=== PATIENT | female | born 1975 | race Caucasian/White ===

== ENCOUNTER 2016-12-27 09:13 | Emergency (ER) | payer OTHER, MEDICAID ==
[~2016-12-27] VITALS: Ht 162.6 cm; Wt 73.9 kg
[~2016-12-27 09:13] MED LIST: CIPR0.3S RIGHT EAR
[2016-12-27 09:18] VITALS: BP 125/81; PULSE 79; RESP 18; TEMP 97.8; O2SAT 98
--- NOTE | 2016-12-27 09:42 | PD ---
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 Patient has had the symptoms for last 3 days. She denies vaginal discharge or bleeding. No urinary symptoms. States that she has not had sexual intercourse in over 7 years. No abdominal pain. PFSH Past Medical History Medical History: Denies Significant Hx High Cholesterol: Yes Diminished Hearing: No Immunizations Current: No Tetanus Vaccination: Unknown ?: Not : 0 Para: 0 Miscarriage: 0 : 0 Past Surgical History Surgical History: No Previous Surgery Social History Alcohol Use: Yes (RARE) Tobacco Use: No Substance Use: No Allergies-Medications (Allergen,Severity, Reaction): Coded Allergies: No Known Allergies (Verified , 12/27/16) Reported Meds & Prescriptions Reported Meds & Active Scripts Active No Active Prescriptions or Reported Medications Review of Systems Except as stated in HPI: all other systems reviewed are Neg Physical Exam Narrative GENERAL: Well-developed, well-nourished, comfortable, no acute distress. CARDIOVASCULAR: Regular rate and rhythm. RESPIRATORY: No accessory muscle use. GASTROINTESTINAL: Abdomen soft, non-tender, nondistended. 3RD MATE: Exam performed in the presence of a female nurse. External genitalia with mild erythema. No external lesions. No fluctuance or induration. There is uterine/bladder prolapse, however cervix does not protrude outside of the introitus. No vaginal discharge or bleeding. No uterine tenderness. No CMT. PSYCHIATRIC: Appropriate mood and affect; insight and judgment normal. Data Data Last Documented VS Vital Signs Date Time Temp Pulse Resp B/P Pulse Ox O2 Delivery O2 Flow Rate FiO2 12/27/16 09:18 97.8 79 18 125/81 98 Orders Urinalysis - C+S If Indicated (12/27/16 09:28) Ed Urine Pregnancytest Poc (12/27/16 09:28) Gc And Chlamydia Pcr (12/27/16 09:39) Wet Prep Profile (12/27/16 09:39) Urine Culture (12/27/16 09:30) Labs Laboratory Tests Test 12/27/16 12/27/16 09:30 09:40 Urine Collection Type CLEAN CATCH Urine Color YELLOW Urine Turbidity MOD Urine pH 5.5 Urine Specific [facility] 1.022 Urine Protein TRACE mg/dL Urine Glucose (UA) 250 mg/dL Urine Ketones TRACE mg/dL Urine Occult Blood NEG Urine Nitrite NEG Urine Bilirubin NEG Urine Leukocyte Esterase NEG Urine WBC 3-5 /hpf Urine Squamous Epithelial > 8 /hpf Cells Urine Transitional Epithelial 0-5 /hpf Cells Urine Amorphous Sediment MOD Urine Bacteria MOD /hpf Urine Hyaline Casts 0-2 /lpf Microscopic Urinalysis Comment CULTURE INDICATED Urine Collection Time 0930 Clue Cells (Wet Prep) PRESENT Vaginal Trichomonas (Wet Prep) NONE SEEN Vaginal Yeast (Wet Prep) NONE SEEN MDM Medical Decision Making Medical Screen Exam Complete: Yes Emergency Medical Condition: Yes Medical Record Reviewed: Yes Differential Diagnosis Vulvovaginal candidiasis, UTI, cystitis, uterine prolapse, bladder prolapse, uterine cancer, PID unlikely Narrative Course Vital signs are within normal limits. UA shows moderate turbidity, 250 glucose, trace ketones, squamous epithelial cells, moderate bacteria which is likely secondary to BV seen on wet prep. Wet prep is positive for clue cells, negative for yeast, negative for Trichomonas. The patient was made aware of all findings. Her abdominal exam is benign. She will be started on Flagyl. She will also be given a dose of Diflucan as clinically it looks as though she does have vulvovaginal candidiasis. I stressed the importance of 3RD MATE follow-up for her uterine prolapse. I will give her the name of the hide puller manufacturing controller with him to follow-up with. She was informed on when to return to the emergency department. She verbalizes understanding and agreement with plan. Diagnosis Primary Impression: Bacterial vaginosis Referrals: Elyssa Rojas MD 3 days Electronics Production Supervisor Additional Instructions: Follow-up with hide puller Dr. Rojas or a hide puller of your choice this week. Return to the emergency department for worsening symptoms or any other concerns. Scripts Metronidazole 500 Mg [id number] Mg PO BID 7 Days Ref 0 Prov:Bryon Summers MD 12/27/16 Disposition: 01 DISCHARGE HOME Condition: Stable Bryon Summers MD Dec 27, 2016 09:42
[2016-12-27 09:43] LABS: BLOOD, URINE NEG (NEG); GLUCOSE,URINE 250 mg/dL (NEG); KETONE, URINE TRACE mg/dL (NEG); NITRITE,URINE NEG (NEG); PH, URINE 5.5 (5.0-8.5)
[2016-12-27 09:54] LABS: METHOD OF COLLECTION CLEAN CATCH; URINE COLOR YELLOW (YELLW/STRAW)
[2016-12-27 09:56] LABS: BACTERIA, URINE MOD /hpf; COMMENT (UR) CULTURE INDICATED; COMMENT2 (UR) MUCOUS PRESENT; CULTURE IF INDICATED CULTURE INDICATED; HYALINE CAST, URINE 0-2 /lpf (RARE); SQUAMOUS EPITHELIAL CELL URINE > 8 /hpf (0-5); TRANSITIONAL EPI CELLS, URINE 0-5 /hpf
[2016-12-27] MEDS ORDERED: METR500T10 PO (10:05)
[2016-12-27] MEDS ORDERED: metroNIDAZOLE 500 MG TAB PO ONE (10:15)
[2016-12-27] MEDS ORDERED: FLUCONAZOLE 100 MG TAB PO ONE (10:15)
[2016-12-27 16:25] LABS: CHLAMYDIA PCR NOT DETECTED (NOT DETECT); NEISSERIA PCR NOT DETECTED (NOT DETECT)
== END 2016-12-27 10:17 | disposition home or self-care (01) ==
LOC: PHED 09:13
DX: N76.0 Acute vaginitis (principal); B37.3 Candidiasis of vulva and vagina; B96.89 Other specified bacterial agents as the cause of diseases classified elsewhere
CPT/HCPCS: 81001; 84703; 87086; 87210; 87491; 87591; 99283

== ENCOUNTER 2017-01-31 11:12 | Emergency (ER) | payer MEDICARE, MEDICAID ==
[~2017-01-31] VITALS: Ht 162.6 cm; Wt 73.0 kg
[~2017-01-31 11:12] MED LIST changes: -CIPR0.3S RIGHT EAR; +METR500T10 PO
[2017-01-31 11:14] VITALS: BP 119/76; PULSE 95; RESP 15; TEMP 97.8; O2SAT 98
[2017-01-31 11:34] LABS: BLOOD, URINE NEG (NEG); GLUCOSE,URINE 250 mg/dL (NEG); KETONE, URINE 15 mg/dL (NEG); NITRITE,URINE NEG (NEG); PH, URINE 5.5 (5.0-8.5)
[2017-01-31 11:44] LABS: METHOD OF COLLECTION CLEAN CATCH; URINE COLOR YELLOW (YELLW/STRAW)
[2017-01-31 11:46] LABS: BACTERIA, URINE MOD /hpf; COMMENT (UR) CULTURE INDICATED; CULTURE IF INDICATED CULTURE INDICATED; RBC, URINE 0-3 /hpf (0-3); SQUAMOUS EPITHELIAL CELL URINE > 8 /hpf (0-5)
[2017-01-31 12:27] VITALS: BP 117/65; PULSE 75; RESP 16; O2SAT 99
--- NOTE | 2017-01-31 12:52 | PD ---
HPI Chief Complaint: Complaint Time Seen by Provider: 11:29 Travel History International Travel<30 days: No Contact w/Intl Traveler<30days: No Traveled to known affect area: No History of Present Illness HPI 41-year-old female describes dysuria and vaginal pruritus a few days. No abnormal vd/vb. 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 No fever/chills. A rash has been seen in region of pubic hair following shaving of the pubic hair.Pt reports sexual inactivity for 7 years. PFSH Past Medical History High Cholesterol: Yes Diminished Hearing: No Immunizations Current: No ?: Not : 0 Para: 0 Miscarriage: 0 : 0 Social History Alcohol Use: Yes (RARE) Tobacco Use: No Substance Use: No Allergies-Medications (Allergen,Severity, Reaction): Coded Allergies: No Known Allergies (Verified , 01/31/17) Reported Meds & Prescriptions Reported Meds & Active Scripts Active Bactrim DS (Sulfamethoxazole-Trimethoprim) 800-160 Mg Tab 1 Tab PO BID Review of Systems General / Constitutional: No: Fever, Chills Genitourinary: Positive: Frequency, Dysuria Physical Exam Narrative GENERAL: 41 yo F wnwd nad SKIN: Warm and dry. PELVIC: Dermatitic rash in region of pubic hair, recently shaved. Vaginal introitus not amenable to speculum exam. Trace white discharge at introitus. HEAD: Atraumatic. Normocephalic. RESPIRATORY: No accessory muscle use. Clear to auscultation. Breath sounds equal bilaterally. GASTROINTESTINAL: Abdomen soft, non-tender, nondistended. Hepatic and splenic margins not palpable. MUSCULOSKELETAL: Extremities without clubbing, cyanosis, or edema. No obvious deformities. NEUROLOGICAL: Awake and alert. No obvious cranial nerve deficits. Motor grossly within normal limits. Five out of 5 muscle strength in the arms and legs. Normal speech. PSYCHIATRIC: Appropriate mood and affect; insight and judgment normal. Data Data Last Documented VS Vital Signs Date Time Temp Pulse Resp B/P Pulse Ox O2 Delivery O2 Flow Rate FiO2 01/31/17 12:27 75 16 117/65 99 Room Air 01/31/17 11:14 97.8 VS reviewed Orders Urinalysis - C+S If Indicated (01/31/17 11:15) Urine Culture (01/31/17 11:30) Wet Prep Profile (01/31/17 11:51) Labs Laboratory Tests Test 01/31/17 01/31/17 11:30 11:55 Urine Collection Type CLEAN CATCH Urine Color YELLOW Urine Turbidity SLIGHT Urine pH 5.5 Urine Specific [facility] 1.027 Urine Protein 30 mg/dL Urine Glucose (UA) 250 mg/dL Urine Ketones 15 mg/dL Urine Occult Blood NEG Urine Nitrite NEG Urine Bilirubin NEG Urine Leukocyte Esterase SMALL Urine RBC 0-3 /hpf Urine WBC 20-24 /hpf Urine Squamous Epithelial > 8 /hpf Cells Urine Bacteria MOD /hpf Urine Hyaline Casts 6-9 /lpf Microscopic Urinalysis Comment CULTURE INDICATED Urine Collection Time 11:30 Clue Cells (Wet Prep) NONE SEEN Vaginal Trichomonas (Wet Prep) NONE SEEN Vaginal Yeast (Wet Prep) NONE SEEN MDM Medical Decision Making Medical Screen Exam Complete: Yes Emergency Medical Condition: Yes Medical Record Reviewed: Yes Differential Diagnosis IUP, UTI, ectopic , ov torsion, appendicitis, TOA, cervicitis, BV, Trichomoniasis, ov cyst, hernia, mittelschmerz, pain from menstruation Narrative Course UA: UTI present Wet prep: negative x 3 The patient is resting comfortably and feels better, is alert and in no distress. The patients results and examination findings were discussed. The repeat examination is unremarkable and benign. The history, exam, diagnostic testing, and current condition do not suggest any significant pathology to warrant further testing, continued ED treatment, admission, or surgical evaluation at this point. The vital signs have been stable. The patient does not have uncontrollable pain, intractable vomiting, or other significant symptoms. The patient's condition is stable and appropriate for discharge. The patient will pursue further outpatient evaluation with a primary care physician or other designated or consulting physician as indicated in the discharge instructions. The patient expressed understanding and was agreeable with this plan. Diagnosis Primary Impression: Cystitis Referrals: Shadia Snow MD 2 days Additional Instructions: You have a choice when it comes to health care, and we are glad that you chose [facility]. Hopefully, we have met your expectations on today's visit. You are welcome to return to [facility] at any time, as we are committed to meeting the health care needs of our community. Med/Other Pt SpecificInfo: Prescription(s) given Scripts Sulfamethoxazole-Trimethoprim (Bactrim DS)800-160 Mg Tab1 Tab PO BID #6 TAB Ref 1 Prov:Mervin Monreal MD 01/31/17 Disposition: 01 DISCHARGE HOME Condition: Stable Mervin Monreal MD Jan 31, 2017 12:52
[2017-01-31] MEDS ORDERED: BACT800T5 PO (13:01)
== END 2017-01-31 13:18 | disposition home or self-care (01) ==
LOC: PHED 11:12
DX: N30.90 Cystitis, unspecified without hematuria (principal); E78.00 Pure hypercholesterolemia, unspecified
CPT/HCPCS: 81001; 87086; 87210; 99283

== ENCOUNTER 2017-02-25 10:14 | Emergency (ER) | payer MEDICAID, OTHER ==
[~2017-02-25 10:14] MED LIST changes: +BACT800T5 PO; -METR500T10 PO
[2017-02-25 10:18] VITALS: BP 129/86; PULSE 88; RESP 22; TEMP 98.2; O2SAT 97
--- NOTE | 2017-02-25 10:30 | PD ---
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 She's never had this happen to her before. She had sex 7 years ago with a boyfriend who she thinks had herpes because he told her that she should get on Valtrex. She denies any vaginal discharge, abdominal pain, fevers or chills but has felt somewhat lethargic and lightheaded. PFSH Past Medical History High Cholesterol: Yes Diminished Hearing: No Immunizations Current: No : 0 Para: 0 Miscarriage: 0 : 0 Social History Alcohol Use: Yes (RARE) Tobacco Use: No Substance Use: No Allergies-Medications (Allergen,Severity, Reaction): Coded Allergies: No Known Allergies (Verified , 02/25/17) Reported Meds & Prescriptions Reported Meds & Active Scripts Active Bactrim DS (Sulfamethoxazole-Trimethoprim) 800-160 Mg Tab 1 Tab PO BID Review of Systems Except as stated in HPI: all other systems reviewed are Neg Physical Exam Narrative GENERAL:Well appearing, no acute distress SKIN: Focused skin assessment warm and dry. HEAD: Atraumatic. Normocephalic. EYES: Pupils equal and round. No injection or drainage. ENT: Moist mucous membranes NECK: Trachea midline. CARDIOVASCULAR: Regular rate and rhythm. No murmur appreciated. RESPIRATORY: Clear to auscultation. Breath sounds equal bilaterally. GASTROINTESTINAL: Abdomen soft, non-tender, nondistended. URGENT CARE PHYSICIAN ASSISTANT: Bladder prolapse, white cheesy discharge in the vault, no cervical motion tenderness or adnexal tenderness. No vesicular lesions. Erythematous thickened skin along the vulva MUSCULOSKELETAL: No obvious deformities. NEUROLOGICAL: Awake and alert. No obvious cranial nerve deficits. Moving all extremities. PSYCHIATRIC: Appropriate mood and affect; insight and judgment normal. Data Data Last Documented VS Vital Signs Date Time Temp Pulse Resp B/P Pulse Ox O2 Delivery O2 Flow Rate FiO2 02/25/17 10:18 98.2 88 22 129/86 97 Orders Wet Prep Profile (02/25/17 10:28) Gc And Chlamydia Pcr (02/25/17 10:28) MDM Medical Decision Making Medical Screen Exam Complete: Yes Emergency Medical Condition: Yes Differential Diagnosis Yeast infection, herpes, gonorrhea, chlamydia, vaginosis Narrative Course This is a 41-year-old female who presents to the emergency department with inflammation of her vulva and cheesy white discharge in the vault consistent with a yeast infection. She completed Bactrim one week ago for a suspected urinary tract infection. I don't appreciate any vesicular lesions to suggest herpes. She's not been sexually active in 7 years. I think patient is appropriate for outpatient management. Blood sugar was checked which was normal. She doesn't have a primary care doctor or pump operator. I expressed to her the importance of obtaining both and she was given information regarding the [facility] and [facility]. Diagnosis Primary Impression: Yeast infection Referrals: [facility] Patient Instructions: General Instructions Additional Instructions: If you develop fever, chills, severe abdominal pain, persistent vomiting or inability to eat return to the emergency department. Your pelvic exam today did not include a Pap smear. It is important to followup with a pump operator on a yearly basis to be tested for cervical cancer as we do not do that from the emergency department. Follow up with [facility] [place] [facility] at: Follow up with: [facility] [place] [facility] [address] [place] [address] Office Hours Thursday - 9:00 am - 5:30 pm Thursday 8:00 am - 12:00 pm Teen Tuesdays 4:00 - 6:30 pm Med/Other Pt SpecificInfo: No Change to Meds Disposition: 01 DISCHARGE HOME Condition: Stable Gia Reed MD Feb 25, 2017 10:30
[2017-02-25] MEDS ORDERED: FLUCONAZOLE 100 MG TAB PO ONE (10:45)
[2017-02-25] MEDS ORDERED: METF500T PO (10:48)
--- NOTE | 2017-02-25 10:49 | PD ---
Data Data Last Documented VS Vital Signs Date Time Temp Pulse Resp B/P Pulse Ox O2 Delivery O2 Flow Rate FiO2 02/25/17 10:18 98.2 88 22 129/86 97 Orders Blood Glucose (02/25/17 10:40) Fluconazole (Diflucan) (02/25/17 10:45) MDM Supervised Visit with MANINDER: No Narrative Course An error was made in the previous note. Patient's random blood sugar came back at 310. This is consistent with diabetes. This explains the patient seized infection. She'll be started on metformin and she was urged to follow-up with the failure clinic as soon as possible. Diagnosis Primary Impression: Yeast infection Additional Impression: Diabetes Qualified Code: E11.9 - Type 2 diabetes mellitus without complication, without long-term current use of insulin Referrals: [facility] Patient Instructions: General Instructions Additional Instruction: If you develop fever, chills, severe abdominal pain, persistent vomiting or inability to eat return to the emergency department. Your pelvic exam today did not include a Pap smear. It is important to followup with a poultry hanger on a yearly basis to be tested for cervical cancer as we do not do that from the emergency department. [facility] with [facility]: Follow up with: [facility] [address] [place] [address] Office Hours Thursday - 9:00 am - 5:30 pm Thursday 8:00 am - 12:00 pm Teen Tuesdays 4:00 - 6:30 pm Med/Other Pt SpecificInfo: Prescription(s) given Scripts Metformin 500 Mg [id number] Mg PO BIDPC #60 TAB Ref 0 With meals Prov:Gia Reed MD 02/25/17 Disposition: 01 DISCHARGE HOME Condition: Stable Gia Reed MD Feb 25, 2017 10:49
== END 2017-02-25 11:12 | disposition home or self-care (01) ==
LOC: PHED 10:14
DX: B37.9 Candidiasis, unspecified (principal); E78.00 Pure hypercholesterolemia, unspecified; E11.9 Type 2 diabetes mellitus without complications; Z79.4 Long term (current) use of insulin
CPT/HCPCS: 99284

== ENCOUNTER 2017-02-27 10:14 | Emergency (ER) | payer MEDICAID ==
[~2017-02-27] VITALS: Ht 162.6 cm; Wt 73.5 kg
[~2017-02-27 10:14] MED LIST changes: -BACT800T5 PO; +METF500T PO
[2017-02-27 10:21] VITALS: BP 146/89; PULSE 93; RESP 16; TEMP 97.8; O2SAT 98
--- NOTE | 2017-02-27 10:54 | PD ---
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 Pt was seen at [facility] 2 days ago for this and was diagnosed with vaginal candidiasis and given fluconazole 150mg PO. Pt also found to have elevated random glucose of 310 and given prescription for metformin and follow up with [facility]. Denies any fever, chest pain, sob, n/v, dysuria, hematuria, vaginal bleeding or discharge, abdominal pain, focal weakness or numbness. PFSH Past Medical History High Cholesterol: Yes Diabetes: Yes (?) Diminished Hearing: No Immunizations Current: No Tetanus Vaccination: > 5 Years Influenza Vaccination: Yes ?: Not : 0 Para: 0 Miscarriage: 0 : 0 Social History Alcohol Use: No Tobacco Use: No Substance Use: No Allergies-Medications (Allergen,Severity, Reaction): Coded Allergies: No Known Allergies (Verified , 02/27/17) Reported Meds & Prescriptions Reported Meds & Active Scripts Active Metformin (Metformin HCl) 500 Mg Tab 500 Mg PO BIDPC With meals Review of Systems Except as stated in HPI: all other systems reviewed are Neg Physical Exam Narrative GENERAL: 41yo F not in distress. SKIN: Focused skin assessment warm/dry. HEAD: Atraumatic. Normocephalic. CARDIOVASCULAR: Regular rate and rhythm. No murmur appreciated. RESPIRATORY: No accessory muscle use. Clear to auscultation. Breath sounds equal bilaterally. GASTROINTESTINAL: Abdomen soft, non-tender, nondistended. No rebound tenderness or guarding. PELVIC: Erythematous labia majora and multiple erythematous papules on the hair follicles. There were excoriation from scratching. Do not see vesicles that resemble herpes. There is a small amount of white vaginal discharge. No CMT or adnexal tenderness bilaterally. MUSCULOSKELETAL: No obvious deformities. No clubbing. No cyanosis. No edema. NEUROLOGICAL: Awake and alert. No obvious cranial nerve deficits. Motor grossly within normal limits. Normal speech. PSYCHIATRIC: Appropriate mood and affect; insight and judgment normal. Data Data Last Documented VS Vital Signs Date Time Temp Pulse Resp B/P Pulse Ox O2 Delivery O2 Flow Rate FiO2 02/27/17 10:21 97.8 93 16 146/89 98 Orders Gc And Chlamydia Pcr (02/27/17 10:51) Wet Prep Profile (02/27/17 10:51) Ed Urine Pregnancytest Poc (02/27/17 10:51) Blood Glucose (02/27/17 10:51) Labs Laboratory Tests Test 02/27/17 11:20 Clue Cells (Wet Prep) NONE SEEN Vaginal Trichomonas (Wet Prep) NONE SEEN Vaginal Yeast (Wet Prep) NONE SEEN MDM Medical Decision Making Medical Screen Exam Complete: Yes Emergency Medical Condition: Yes Differential Diagnosis Vulvar folliculitis vs. vaginal candidiasis vs. bacterial vaginosis Narrative Course 41yoF here with c/o persistent vaginal itching. Does not look herpetic to me. Pt has not had sexual intercourse for 7 years. Random blood glucose is again elevated today at 334 and pt states she filled the metformin prescription she had 2 days ago but has not started taking it. Encouraged pt to start medication and to follow up with [facility] as well as HYPOID GEAR GENERATOR. Wet prep negative for clue cells, trichomonas or yeast. Vulva does appear inflamed with early folliculitis. Pt admits to shaving. Will cover with keflex and instructed pt to follow up with HYPOID GEAR GENERATOR. Diagnosis Primary Impression: Vaginal irritation Patient Instructions: General Instructions Departure Forms: Tests/Procedures Additional Instructions: Please follow up with gynecology in 3-7 days. Please follow up with [facility] in 3-7 days for work up of diabetes. Med/Other Pt SpecificInfo: Prescription(s) given Scripts Diphenhydramine 25 Mg Cap25 Mg PO Q6H PRN (ITCHING) #20 CAP Ref 0 Prov:Piper Clark DO 02/27/17 Cephalexin (Keflex)500 Mg [id number] Mg PO Q12H 7 Days Ref 0 Prov:Piper Clark DO 02/27/17 Disposition: 01 DISCHARGE HOME Condition: Stable Piper Clark DO Feb 27, 2017 10:54
[2017-02-27] MEDS ORDERED: CEPH-460 PO (12:19)
[2017-02-27] MEDS ORDERED: DIPH25CA PO (12:19)
[2017-02-27 15:46] LABS: CHLAMYDIA PCR NOT DETECTED (NOT DETECT); NEISSERIA PCR NOT DETECTED (NOT DETECT)
== END 2017-02-27 12:30 | disposition home or self-care (01) ==
LOC: PHED 10:14
DX: N89.8 Other specified noninflammatory disorders of vagina (principal); R73.9 Hyperglycemia, unspecified; E78.00 Pure hypercholesterolemia, unspecified
CPT/HCPCS: 84703; 87210; 87491; 87591; 99283

== ENCOUNTER 2017-04-04 11:54 | Emergency (ER) | payer MEDICARE, MEDICAID ==
[~2017-04-04 11:54] MED LIST changes: +CEPH-460 PO; +DIPH25CA PO
[2017-04-04 11:56] VITALS: BP 141/84; PULSE 101; RESP 15; TEMP 98.2; O2SAT 98
[2017-04-04 12:02] VITALS: PULSE 69
--- NOTE | 2017-04-04 12:02 | PD ---
Physical Exam Date Seen by Provider: Apr 04, 2017 Time Seen by Provider: 12:00 Data Data Last Documented VS Vital Signs Date Time Temp Pulse Resp B/P Pulse Ox O2 Delivery O2 Flow Rate FiO2 04/04/17 11:56 98.2 101 15 141/84 98 MDM Supervised Visit with MANINDER: No Narrative Course 41 YO F with complaint of painful bump in the left groin x "a couple of days." Denies injury. +chills. Also complains of swelling in the left foot on waking this AM. Vitals reviewed. Patient seen in triage. Awaiting bed placement. Nell Green Apr 04, 2017 12:02
--- NOTE | 2017-04-04 12:20 | PD ---
HPI Chief Complaint: Lump, Cyst, Hernia Time Seen by Provider: 12:08 Travel History International Travel<30 days: No Contact w/Intl Traveler<30days: No Traveled to known affect area: No History of Present Illness HPI This is a 41-year-old female who presents to the emergency department with a lump in her left groin that's been going on for several days, painful. She's been bathing frequently in the hopes that it would bust open but it hasn't. She denies any vaginal discharge. She does say she's had some polyuria and she' s been thirsty. She does say she's had some intermittent fevers and chills. She says she hasn't had sex in 7 years. I saw this patient earlier this month at [place]. She was there with white vaginal discharge and I treated her for a yeast infection in the setting of hyperglycemia. She has diabetes which is not currently being treated. She is not sure if she started her diabetes medicine and she's having trouble getting into a primary care doctor. PFSH Past Medical History High Cholesterol: Yes Diabetes: Yes (?) Diminished Hearing: No Immunizations Current: No : 0 Para: 0 Miscarriage: 0 : 0 Social History Alcohol Use: No Tobacco Use: No Substance Use: No Allergies-Medications (Allergen,Severity, Reaction): Coded Allergies: No Known Allergies (Verified , 02/27/17) Reported Meds & Prescriptions Reported Meds & Active Scripts Active Diphenhydramine (Diphenhydramine HCl) 25 Mg Cap 25 Mg PO Q6H PRN Metformin (Metformin HCl) 500 Mg Tab 500 Mg PO BIDPC With meals Review of Systems Except as stated in HPI: all other systems reviewed are Neg Physical Exam Narrative GENERAL:Well appearing, no acute distress SKIN: Scattered excoriated lesions over the right abdomen, and bilateral upper and lower extremities HEAD: Atraumatic. Normocephalic. EYES: Pupils equal and round. No injection or drainage. ENT: Moist mucous membranes NECK: Trachea midline. CARDIOVASCULAR: Regular rate and rhythm. No murmur appreciated. RESPIRATORY: Clear to auscultation. Breath sounds equal bilaterally. GASTROINTESTINAL: Abdomen soft, non-tender, nondistended. SPECIAL DAY CLASS TEACHER: Normal-appearing external genitalia with some erythema and dryness of the vulva. Tender single lymph node in the left inguinal region. No obvious vaginal discharge. MUSCULOSKELETAL: No obvious deformities. NEUROLOGICAL: Awake and alert. No obvious cranial nerve deficits. PSYCHIATRIC: Appropriate mood and affect; insight and judgment normal. Data Data Last Documented VS Vital Signs Date Time Temp Pulse Resp B/P Pulse Ox O2 Delivery O2 Flow Rate FiO2 04/04/17 12:02 69 04/04/17 11:56 98.2 15 141/84 98 Orders Blood Glucose (04/04/17 12:20) [facility] Medical Decision Making Medical Screen Exam Complete: Yes Emergency Medical Condition: Yes Differential Diagnosis STD, lymphadenopathy, vaginosis, yeast infection Narrative Course Is a 41-year-old female who presents to the emergency department with a lump in her vagina. She has multiple unrelated complaints including some pain in her legs, scattered lesions on her upper and lower extremities, and polyuria. I suspect most of this is related to poorly controlled diabetes. The patient appears to have some cognitive delay. She gets very emotional when I tried to breastfeeding peer counselor her regarding her diabetes. [place] Her mom and she says her sister and her daughters are stealing from her and aren't helping her. Sounds like she filed an injunction through the courts but it hasn't gone through. My impression is a lot of her presentation is social. I did try to breastfeeding peer counselor her regarding diabetic diet and the importance of initiating metformin. She's not risk for STD given her history. I think she can safely be discharged and follow -up with his [facility] which I gave her the information for once again. Diagnosis Primary Impression: Lymphadenopathy Additional Impression: Diabetes Qualified Code: E11.9 - Type 2 diabetes mellitus without complication, without long-term current use of insulin Patient Instructions: General Instructions Med/Other Pt SpecificInfo: Prescription(s) given Scripts Mupirocin Topical (Bactroban Topical)22 Gm Cream1 Applic TOPICAL BID #1 TUBE Ref 0 Prov:Gia Reed MD 04/04/17 Metformin 500 Mg [id number] Mg PO BIDPC #60 TAB Ref 0 With meals Prov:Gia Reed MD 04/04/17 Disposition: 01 DISCHARGE HOME Condition: Stable Gia Reed MD Apr 04, 2017 12:20
[2017-04-04] MEDS ORDERED: MUPI2%T TOPICAL (13:11)
[2017-04-04] MEDS ORDERED: METF500T PO (13:11)
== END 2017-04-04 13:20 | disposition home or self-care (01) ==
LOC: NEPD 11:54
DX: R59.1 Generalized enlarged lymph nodes (principal); E11.65 Type 2 diabetes mellitus with hyperglycemia; M79.605 Pain in left leg; M79.604 Pain in right leg; R35.8 Other polyuria; E78.00 Pure hypercholesterolemia, unspecified; Z79.899 Other long term (current) drug therapy
CPT/HCPCS: 99284

== ENCOUNTER 2017-07-06 07:12 | Emergency (ER) | payer MEDICAID, MEDICARE, OTHER ==
[~2017-07-06] VITALS: Ht 165.1 cm; Wt 67.7 kg
[~2017-07-06 07:12] MED LIST changes: -CEPH-460 PO; +MUPI2%T TOPICAL
[2017-07-06 07:19] VITALS: BP 126/71; PULSE 82; RESP 16; TEMP 98.1; O2SAT 97
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
[2017-07-06 08:16] LABS: BLOOD, URINE NEG (NEG); GLUCOSE,URINE 100 mg/dL (NEG); KETONE, URINE 15 mg/dL (NEG); NITRITE,URINE NEG (NEG)
[2017-07-06 08:24] LABS: URINE COLOR YELLOW (YELLW/STRAW)
[2017-07-06 08:26] LABS: BACTERIA, URINE OCC /hpf; COMMENT (UR) CULTURE INDICATED; CULTURE IF INDICATED CULTURE INDICATED; MUCUS URINE OCC /lpf (OCC); RBC, URINE 0-3 /hpf (0-3)
[2017-07-06 10:55] VITALS: BP 117/66; PULSE 79; RESP 16; O2SAT 98
--- NOTE | 2017-07-06 11:13 | RADRPT ---
EXAM DATE/TIME: 07/06/2017 10:08 [facility] COMPARISON: No previous studies available for comparison. INDICATIONS : Pelvic pain. Exam is limited by bowel gas on the transabdominal. Patient has the history of uterine didelphys. MEDICAL HISTORY : Hypercholesterolemia. Diabetes. SURGICAL HISTORY : None. ENCOUNTER: Initial ACUITY: 1 day PAIN SCORE: 8/10 LOCATION: Bilateral pelvis MEASUREMENTS: TRANSABDOMINAL: FINDINGS: UTERUS: Small hyperechoic area posterior uterus probable fibroid RIGHT OVARY: Not visualized. LEFT OVARY: Poorly seen, obscured by soft tissue mass same density uterus. MISCELLANEOUS: No free fluid. CONCLUSION: Difficult exam because of body habitus and bowel gas. I cannot totally see either ovary. Uterus is poorly visualized.. CT of the pelvis with IV contrast could give more information Kong Gregory MD FACR on July 06, 2017 at 11:07 Board Certified Radiologist. This report was verified electronically.
[2017-07-06 11:35] LABS: AUTOMATED NEUTROPHIL # 7.3 TH/MM3 (1.8-7.7); BASOPHIL # 0.2 TH/MM3 (0-0.2); BASOPHIL % 2.2 % (0.0-2.0); EOSINOPHIL # 0.2 TH/MM3 (0-0.4); EOSINOPHIL % 1.6 % (0.0-4.0); HEMATOCRIT 40.3 % (35.0-46.0); HEMO FLAGS DIFF FINAL; LYMPH % 21.9 % (9.0-44.0); LYMPHOCYTE # 2.3 TH/MM3 (1.0-4.8); MEAN CELL VOLUME 83.5 FL (80.0-100.0); MEAN CORPUSCULAR HEMOGLOBIN 28.6 PG (27.0-34.0); MEAN CORPUSCULAR HGB CONC 34.2 % (32.0-36.0); NEUT % 69.3 % (16.0-70.0); PLATELET COUNT 293 TH/MM3 (150-450); RED BLOOD COUNT 4.83 MIL/MM3 (4.00-5.30); RED CELL DISTRIBUTION WIDTH 12.3 % (11.6-17.2); WHITE BLOOD COUNT 10.5 TH/MM3 (4.0-11.0)
[2017-07-06 11:58] LABS: POTASSIUM 3.1 MEQ/L (3.5-5.1)
[2017-07-06 12:02] LABS: BICARBONATE 32.6 MEQ/L (21.0-32.0)
[2017-07-06] MEDS ORDERED: IOHEXOL 350 MG/ML 10 ML VIAL (for RAD DIAG) IVCONTRAST ONE (12:03)
--- NOTE | 2017-07-06 12:24 | RADRPT ---
EXAM DATE/TIME: 07/06/2017 11:57 [facility] COMPARISON: US PELVIS COMP W/TRANSVAGINAL, July 06, 2017, 10:08. INDICATIONS : Pelvic pain. IV CONTRAST: 90 cc Omnipaque 350 (iohexol) IV ORAL CONTRAST: No oral contrast ingested. RADIATION DOSE: 15.91 CTDIvol (mGy) MEDICAL HISTORY : Hypercholesterolemia. Diabetes. SURGICAL HISTORY : None. ENCOUNTER: Initial ACUITY: 1 day PAIN SCALE: 8/10 LOCATION: Bilateral pelvis TECHNIQUE: Volumetric scanning of the pelvis was performed. Using automated exposure control and adjustment of t he mA and/or kV according to patient size, radiation dose was kept as low as reasonably achievable to obtain optimal diagnostic quality images. DICOM format image data is available electronically for review and comparison. FINDINGS: BOWEL/MESENTERY: The visualized small and large bowel demonstrate no acute abnormality. There is no free fluid. No inf lammatory changes are seen. There is stool throughout the colon. BLADDER: There is no wall thickening or mass. RETROPERITONEUM: There is no aneurysm or lymphadenopathy. REPRODUCTIVE: The uterus is not enlarged. There is a right ovarian cyst measuring 2.5 cm. However, there is diffuse nonspecific enhancement of both ovaries. Both ovaries appear to be prominent in size. No definite or surrounding inflammatory changes are seen. INGUINAL: There is no lymphadenopathy or hernia. MUSCULOSKELETAL: Within normal limits for patient age. CONCLUSION: 1. There appears to be diffuse prominence and diffuse enhancement of both ovaries without definite johnson rrounding inflammatory changes. No free fluid is seen in the cul-de-sac. 2. There is a well-defined right ovarian cyst measuring 2.5 cm. 3. The rest of exam is grossly unremarkable. Víctor Majano MD on July 06, 2017 at 12:15 Board Certified Radiologist. This report was verified electronically.
[2017-07-06 12:45] VITALS: BP 112/64; PULSE 81; RESP 16; O2SAT 97
[2017-07-06] MEDS ORDERED: cefTRIAXone 250 MG VIAL IM ONE (13:00)
[2017-07-06] MEDS ORDERED: AZITHROMYCIN PWD FOR SUSP 1 GM PACKET PO ONE (13:00)
[2017-07-06] MEDS ORDERED: LIDOCAINE HCL 1% 50 ML VIAL IM ONE (13:00)
[2017-07-06] MEDS ORDERED: POTASSIUM CHLORIDE 20 MEQ CONTROLLED RELEASE TAB PO ONE (13:00)
[2017-07-06 15:59] LABS: CHLAMYDIA PCR NOT DETECTED (NOT DETECT); NEISSERIA PCR NOT DETECTED (NOT DETECT)
== END 2017-07-06 13:12 | disposition home or self-care (01) ==
LOC: PHED 07:12
DX: N89.8 Other specified noninflammatory disorders of vagina (principal); N83.201 Unspecified ovarian cyst, right side; R10.30 Lower abdominal pain, unspecified; E78.00 Pure hypercholesterolemia, unspecified; E11.65 Type 2 diabetes mellitus with hyperglycemia; R82.99 Other abnormal findings in urine; Z79.84 Long term (current) use of oral hypoglycemic drugs
CPT/HCPCS: 72193; 76830; 76856; 80048; 81001; 84703; 85025; 87086; 87210; 87491; 87591; 96372; 99285; J0696; Q9967

== ENCOUNTER 2017-07-21 13:07 | Emergency (ER) | payer OTHER ==
[~2017-07-21] VITALS: Ht 162.6 cm; Wt 69.0 kg
[~2017-07-21 13:07] MED LIST changes: -DIPH25CA PO; -MUPI2%T TOPICAL
[2017-07-21 13:29] VITALS: BP 128/68; PULSE 79; RESP 18; TEMP 98.3; O2SAT 98
[2017-07-21 14:03] LABS: BLOOD, URINE NEG (NEG); GLUCOSE,URINE 250 mg/dL (NEG); KETONE, URINE NEG (NEG); NITRITE,URINE NEG (NEG); PH, URINE 5.5 (5.0-8.5)
[2017-07-21 14:08] LABS: METHOD OF COLLECTION CLEAN CATCH; URINE COLOR YELLOW (YELLW/STRAW)
[2017-07-21 14:10] LABS: COMMENT (UR) CULT NOT INDICATED; COMMENT2 (UR) MUCOUS PRESENT; CULTURE IF INDICATED CULT NOT INDICATED; RBC, URINE 0-3 /hpf (0-3); SQUAMOUS EPITHELIAL CELL URINE > 8 /hpf (0-5); TRANSITIONAL EPI CELLS, URINE 0-5 /hpf
[2017-07-21] MEDS ORDERED: DIFL150T PO (16:06)
--- NOTE | 2017-07-21 16:07 | PD ---
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 The patient states she has a history of this coming and going multiple times. The patient is a difficult historian and is unable to elaborate further. Denies any fever denies any abdominal pain denies any burning on urination but states it is irritated "down there". Symptoms moderate, context is diabetes, waxing and waning, over the past few weeks. PFSH Past Medical History High Cholesterol: Yes Diabetes: Yes Patient Takes Glucophage: Yes Diminished Hearing: No Immunizations Current: No Tetanus Vaccination: < 5 Years Influenza Vaccination: No ?: Not LMP: never had menses : 0 Para: 0 Miscarriage: 0 : 0 Past Surgical History Surgical History: No Previous Surgery Social History Alcohol Use: Yes (SOCIAL-wine) Tobacco Use: No Substance Use: No Allergies-Medications (Allergen,Severity, Reaction): Coded Allergies: No Known Allergies (Verified Adverse Reaction, Unknown, 07/21/17) Reported Meds & Prescriptions Reported Meds & Active Scripts Active Diflucan (Fluconazole) 150 Mg Tab 150 Mg PO ONCE Take on 07/28/2017 Metformin (Metformin HCl) 500 Mg Tab 500 Mg PO BIDPC With meals Review of Systems Except as stated in HPI: all other systems reviewed are Neg Physical Exam Narrative GENERAL: Well-nourished, well-developed patient. SKIN: Focused skin assessment warm/dry. HEAD: Normocephalic. EYES: No scleral icterus. No injection or drainage. NECK: Supple, trachea midline. No JVD or lymphadenopathy. CARDIOVASCULAR: Regular rate and rhythm without murmurs, gallops, or rubs. RESPIRATORY: Breath sounds equal bilaterally. No accessory muscle use. GASTROINTESTINAL: Abdomen soft, non-tender, nondistended. GENITOURINARY: Exam performed with female nurse manager construction present at all times, there is some mild redness to the mons pubis with some satellite lesions consistent with a candidal infection, minimal curd-like discharge. No cervical motion tenderness no cervicitis no bimanual tenderness. MUSCULOSKELETAL: No cyanosis, or edema. BACK: Nontender without obvious deformity. No CVA tenderness. Data Data Last Documented VS Vital Signs Date Time Temp Pulse Resp B/P (MAP) Pulse Ox O2 Delivery O2 Flow Rate FiO2 07/21/17 15:43 16 07/21/17 13:29 98.3 79 128/68 (88) 98 Orders Orders Urinalysis - C+S If Indicated (07/21/17 13:40) Wet Prep Profile (07/21/17 15:17) Gc And Chlamydia Pcr (07/21/17 15:17) Bedside Glucose [place].CSUGAR (07/21/17 15:19) Fluconazole (Diflucan) (07/21/17 17:00) Ed Discharge Order (07/21/17 16:04) Fluconazole (Diflucan) (07/21/17 16:15) Labs Laboratory Tests Test 07/21/17 13:49 07/21/17 16:02 Urine Collection Type CLEAN CATCH Urine Color YELLOW Urine Turbidity SLIGHT Urine pH 5.5 Urine Specific [place] 1.026 Urine Protein NEG mg/dL Urine Glucose (UA) 250 mg/dL Urine Ketones NEG mg/dL Urine Occult Blood NEG Urine Nitrite NEG Urine Bilirubin NEG Urine Leukocyte Esterase NEG Urine RBC 0-3 /hpf Urine WBC 3-5 /hpf Urine Squamous Epithelial Cells > 8 /hpf Urine Transitional Epithelial Cells 0-5 /hpf Urine Amorphous Sediment MOD Microscopic Urinalysis Comment CULT NOT INDICATED Urine Collection Time 1349 Clue Cells (Wet Prep) NONE SEEN Vaginal Trichomonas (Wet Prep) NONE SEEN Vaginal Yeast (Wet Prep) NONE SEEN Chlamydia trachomatis DNA (PCR) NOT DETECTED Neisseria gonorrhoeae DNA (PCR) NOT DETECTED MDM Medical Decision Making Medical Screen Exam Complete: Yes Emergency Medical Condition: Yes Differential Diagnosis Candidiasis, bacterial vaginosis, UTI, diabetes. Narrative Course Well-appearing well-nourished female in no distress. UA negative, is on metformin for diabetes has not followed up with a primary care physician as of yet. Has symptoms consistent with vaginal candidiasis will be given a dose of Diflucan here an additional 1 and a week. Urged to follow-up with a primary care physician or the [facility]. She stable for discharge. Diagnosis Primary Impression: Yeast infection Referrals: [facility] [address] Med/Other Pt SpecificInfo: Prescription(s) given Scripts Fluconazole (Diflucan) 150 Mg Tab 150 MG PO ONCE for Infection, #1 TAB 0 Refills Take on 07/28/2017 Prov: Darci Bashir MD 07/21/17 Disposition: 01 DISCHARGE HOME Condition: Stable Darci Bashir MD Jul 21, 2017 16:07
[2017-07-21] MEDS ORDERED: FLUCONAZOLE 100 MG TAB PO ONE ×2 (16:15→17:00)
[2017-07-21 18:41] LABS: CHLAMYDIA PCR NOT DETECTED (NOT DETECT); NEISSERIA PCR NOT DETECTED (NOT DETECT)
== END 2017-07-21 16:38 | disposition home or self-care (01) ==
LOC: PHED 13:07
DX: B37.3 Candidiasis of vulva and vagina (principal); E11.9 Type 2 diabetes mellitus without complications; Z79.84 Long term (current) use of oral hypoglycemic drugs
CPT/HCPCS: 81001; 87210; 87491; 87591; 99283

== ENCOUNTER 2017-11-04 08:23 | Emergency (ER) | payer OTHER ==
[~2017-11-04] VITALS: Ht 160 cm; Wt 71.5 kg
[~2017-11-04 08:23] MED LIST changes: +DIFL150T PO
[2017-11-04 08:25] VITALS: BP 125/69; PULSE 96; RESP 16; TEMP 98.2; O2SAT 97
[2017-11-04 09:09] LABS: BILIRUBIN, URINE NEG (NEG); BLOOD, URINE NEG (NEG); GLUCOSE,URINE 1000 OR GREATER mg/dL (NEG); KETONE, URINE NEG (NEG); NITRITE,URINE NEG (NEG); PH, URINE 5.5 (5.0-8.5); URINE COLOR YELLOW (YELLW/STRAW); URINE LEUKOCYTE ESTERASE NEG (NEG)
[2017-11-04 09:14] LABS: WBC, URINE 0-2 /hpf (0-5)
[2017-11-04 09:15] LABS: RBC, URINE 0-3 /hpf (0-3); SQUAMOUS EPITHELIAL CELL URINE > 8 /hpf (0-5)
[2017-11-04] MEDS ORDERED: DIFL150T PO (09:34)
--- NOTE | 2017-11-04 09:35 | PD ---
HPI Chief Complaint: Complaint Time Seen by Provider: 08:38 Travel History International Travel<30 days: No Contact w/Intl Traveler<30days: No Traveled to known affect area: No History of Present Illness HPI This is a 41-year-old female who presents to the ER complaining of frequency urination and itchiness. Patient states that her symptoms started about a week ago, itchiness in the vaginal area with vaginal discharge. Discharge is white thick cheese like [id number] associated with itchiness in the vaginal area. She also complained of frequency urination and burning the urination. Denies any abdominal pain no fever or chills or night sweats. No vaginal bleeding. PFSH Past Medical History High Cholesterol: Yes Diabetes: Yes Patient Takes Glucophage: No Diminished Hearing: No Immunizations Current: No ?: Not : 0 Para: 0 Miscarriage: 0 : 0 Social History Alcohol Use: Yes (SOCIAL-wine) Tobacco Use: No Substance Use: No Allergies-Medications (Allergen,Severity, Reaction): Coded Allergies: No Known Allergies (Verified Adverse Reaction, Unknown, 11/04/17) Reported Meds & Prescriptions Reported Meds & Active Scripts Active No Active Prescriptions or Reported Medications Review of Systems Except as stated in HPI: all other systems reviewed are Neg General / Constitutional: No: Fever Eyes: No: Diploplia HENT: No: Headaches Physical Exam Narrative GENERAL: Alert oriented 3 no acute distress. SKIN: Focused skin assessment warm/dry. HEAD: Atraumatic. Normocephalic. EYES: Pupils equal and round. No scleral icterus. No injection or drainage. ENT: No nasal bleeding or discharge. Mucous membranes pink and moist. NECK: Trachea midline. No JVD. CARDIOVASCULAR: Regular rate and rhythm. No murmur appreciated. RESPIRATORY: No accessory muscle use. Clear to auscultation. Breath sounds equal bilaterally. GASTROINTESTINAL: Abdomen soft, non-tender, nondistended. Hepatic and splenic margins not palpable. Genitourinary: white thick vaginal discharge, normal cervix. negative bimanual. MUSCULOSKELETAL: No obvious deformities. No clubbing. No cyanosis. No edema. NEUROLOGICAL: Awake and alert. No obvious cranial nerve deficits. Motor grossly within normal limits. Normal speech. PSYCHIATRIC: Appropriate mood and affect; insight and judgment normal. Data Data Last Documented VS Vital Signs Date Time Temp Pulse Resp B/P (MAP) Pulse Ox O2 Delivery O2 Flow Rate FiO2 11/04/17 08:25 98.2 96 16 125/69 (87) 97 Orders Orders Urinalysis - C+S If Indicated (11/04/17 08:50) Labs Laboratory Tests Test 11/04/17 08:54 Urine Collection Type CLEAN CATCH Urine Color YELLOW Urine Turbidity CLEAR Urine pH 5.5 Urine Specific [place] 1.030 Urine Protein NEG mg/dL Urine Glucose (UA) 1000 OR GREATER mg/dL Urine Ketones NEG mg/dL Urine Occult Blood NEG Urine Nitrite NEG Urine Bilirubin NEG Urine Urobilinogen 0.2 MG/DL Urine Leukocyte Esterase NEG Urine RBC 0-3 /hpf Urine WBC 0-2 /hpf Urine Squamous Epithelial Cells > 8 /hpf Microscopic Urinalysis Comment CULT NOT INDICATED Urine Collection Time 08:54 [facility] Medical Decision Making Medical Screen Exam Complete: Yes Emergency Medical Condition: Yes Differential Diagnosis UTI, Susan vaginitis, bacterial vaginosis. Narrative Course This is a 41-year-old female came to the ER complaining of itchiness and frequency urination. Vaginal exam is consistent with Susan vaginitis. will give her the treatment for that and the urine is negative she can follow-up with the is any clinic to return to the ER if symptoms change or do not improve. Diagnosis Primary Impression: Susan vaginitis Additional Instructions: Return to ER if symptoms change or do not improve. Scripts Fluconazole (Diflucan) 150 Mg Tab 150 MG PO ONCE for Infection, #1 TAB 0 Refills Prov: Raul Hood MD 11/04/17 Disposition: 01 DISCHARGE HOME Condition: Stable Raul Hood MD Nov 04, 2017 09:35
[2017-11-04] MEDS ORDERED: metroNIDAZOLE 500 MG TAB PO ONE (09:45)
== END 2017-11-04 09:50 | disposition home or self-care (01) ==
LOC: PHED 08:23
DX: B37.3 Candidiasis of vulva and vagina (principal); E11.9 Type 2 diabetes mellitus without complications
CPT/HCPCS: 81001; 87210; 87491; 87591; 99284

== ENCOUNTER 2018-01-17 11:32 | Emergency (ER) | payer OTHER ==
[~2018-01-17] VITALS: Ht 162.6 cm; Wt 71.0 kg
[~2018-01-17 11:32] MED LIST changes: -METF500T PO
[2018-01-17 11:40] VITALS: BP 117/55; PULSE 94; RESP 16; TEMP 97.3; O2SAT 98
[2018-01-17 12:00] LABS: BLOOD, URINE NEG (NEG); GLUCOSE,URINE NEG (NEG); KETONE, URINE 15 mg/dL (NEG); NITRITE,URINE NEG (NEG); PH, URINE 5.5 (5.0-8.5); URINE COLOR YELLOW (YELLW/STRAW); URINE LEUKOCYTE ESTERASE TRACE (NEG)
[2018-01-17 12:19] LABS: BILIRUBIN, URINE NEG (NEG)
[2018-01-17 12:21] LABS: BACTERIA, URINE FEW /hpf; RBC, URINE 0-3 /hpf (0-3); SQUAMOUS EPITHELIAL CELL URINE > 8 /hpf (0-5)
[2018-01-17] MEDS ORDERED: GLYB2.5T3 PO (12:42)
[2018-01-17] MEDS ORDERED: CHOLESTEROL MED (12:42)
[2018-01-17] MEDS ORDERED: METF1000 PO (12:42)
--- NOTE | 2018-01-17 12:42 | PD ---
HPI Chief Complaint: [employer] Problem/Complaint Time Seen by Provider: 12:26 Travel History International Travel<30 days: No Contact w/Intl Traveler<30days: No Traveled to known affect area: No History of Present Illness HPI Patient is a 42-year-old female who presents the emergency room with multiple complaints. Patient reports that for the past few months, her vagina has been itchy, reports that she has noticed a thick white discharge with a foul- smelling fishy odor. Patient reports that she has seen her PRESCHOOL TEACHER AIDE who prescribed her 4 courses of Diflucan, reports that she still has the symptoms. Reports that she did not have a pelvic exam performed by her PRESCHOOL TEACHER AIDE, patient is unsure if she has an STD. Patient is sexually active, reports that the last time she was sexually active was in July. Patient reports that for the past 3 days, she has been having suprapubic abdominal tenderness -patient reports that sometimes the pain is to her lower abdomen, sometimes it radiates up to her upper abdomen. Patient reports no fever or chills with her symptoms, denies any constipation or diarrhea. Patient denies dysuria, urinary urgency or frequency. PFSH Past Medical History High Cholesterol: Yes Diabetes: Yes Diminished Hearing: No Immunizations Current: No : 0 Para: 0 Miscarriage: 0 : 0 Past Surgical History Surgical History: No Previous Surgery Social History Alcohol Use: Yes (SOCIAL-wine) Tobacco Use: No Substance Use: No Allergies-Medications (Allergen,Severity, Reaction): Coded Allergies: No Known Allergies (Verified Adverse Reaction, Unknown, 01/17/18) Reported Meds & Prescriptions Reported Meds & Active Scripts Active Diflucan (Fluconazole) 150 Mg Tab 150 Mg PO ONCE Clotrimazole Vaginal 1% Cream 1 Appl VAGINAL HS Macrobid (Nitrofurantoin Monoh/Nitrofur Macro) 100 Mg Cap 100 Mg PO BID 10 Days Reported [Cholesterol Med] Glyburide 2.5 Mg Tab 2.5 Mg PO DAILY Take with meals at the same time each day Metformin (Metformin HCl) 1,000 Mg Tab 1,000 Mg PO BIDPC Review of Systems General / Constitutional: No: Fever Eyes: No: Visual changes HENT: No: Headaches Cardiovascular: No: Chest Pain or Discomfort Respiratory: No: Shortness of Breath Gastrointestinal: Positive: Abdominal Pain, No: Nausea, Vomiting, Diarrhea, Constipation Genitourinary: Positive: Discharge, Other (Vaginal pruritus), No: Urgency, Frequency, Dysuria Musculoskeletal: No: Pain Skin: No Rash Neurologic: No: Weakness Psychiatric: No: Depression Endocrine: No: Polydipsia Hematologic/Lymphatic: No: Easy Bruising Physical Exam Narrative GENERAL: No acute distress, nontoxic SKIN: Focused skin assessment warm/dry. HEAD: Atraumatic. Normocephalic. EYES: Pupils equal and round. No scleral icterus. No injection or drainage. ENT: No nasal bleeding or discharge. Mucous membranes pink and moist. NECK: Trachea midline. No JVD. CARDIOVASCULAR: Regular rate and rhythm. No murmur appreciated. RESPIRATORY: No accessory muscle use. Clear to auscultation. Breath sounds equal bilaterally. GASTROINTESTINAL: Abdomen soft, non-tender, nondistended. Hepatic and splenic margins not palpable. MUSCULOSKELETAL: No obvious deformities. No clubbing. No cyanosis. No edema. : Exam performed with RN at bedside. Patient with no CMT or adnexal tenderness. Patient does have thick white vaginal discharge on exam. Patient is labia minora as well as majora does appear irritated -patient endorses that she can stop scratching her vagina. There is no superimposed infection/ cellulitis. NEUROLOGICAL: Awake and alert. No obvious cranial nerve deficits. Motor grossly within normal limits. Normal speech. PSYCHIATRIC: Appropriate mood and affect; insight and judgment normal. Data Data Last Documented VS Vital Signs Date Time Temp Pulse Resp B/P (MAP) Pulse Ox O2 Delivery O2 Flow Rate FiO2 01/17/18 11:40 97.3 94 16 117/55 (75) 98 Orders Orders Urinalysis - C+S If Indicated (01/17/18 11:42) Ed Urine Pregnancytest Poc (01/17/18 12:04) Urine Culture (01/17/18 11:40) Complete Blood Count With Diff (01/17/18 12:35) Comprehensive Metabolic Panel (01/17/18 12:35) Gc And Chlamydia Pcr (01/17/18 12:35) Wet Prep Profile (01/17/18 12:35) Iv Access Insert/Monitor (01/17/18 12:35) Ecg Monitoring (01/17/18 12:35) Sodium Chloride 0.9% Flush (Ns Flush) (01/17/18 12:45) Ct Abd/Pel W Iv Contrast(Rout) (01/17/18 12:35) Nitrofurantoin Monohyd Macrocr (Macrobid (01/17/18 14:00) Iohexol 350 Inj (Omnipaque 350 Inj) (01/17/18 14:08) Ed Discharge Order (01/17/18 15:08) Labs Laboratory Tests Test 01/17/18 11:40 01/17/18 12:40 01/17/18 13:00 Urine Collection Type CLEAN CATCH Urine Color YELLOW Urine Turbidity SL CLOUDY Urine pH 5.5 Urine Specific [place] GREATER/EQUAL 1.030 Urine Protein 100 mg/dL Urine Glucose (UA) NEG mg/dL Urine Ketones 15 mg/dL Urine Occult Blood NEG Urine Nitrite NEG Urine Bilirubin NEG Urine Urobilinogen 0.2 MG/DL Urine Leukocyte Esterase TRACE Urine RBC 0-3 /hpf Urine WBC 9-14 /hpf Urine Squamous Epithelial Cells > 8 /hpf Urine Bacteria FEW /hpf Microscopic Urinalysis Comment CULTURE INDICATED Urine Collection Time 11:40 Clue Cells (Wet Prep) NONE SEEN Vaginal Trichomonas (Wet Prep) NONE SEEN Vaginal Yeast (Wet Prep) NONE SEEN White Blood Count 8.7 TH/MM3 Red Blood Count 5.18 MIL/MM3 Hemoglobin 14.3 GM/DL Hematocrit 43.0 % Mean Corpuscular Volume 83.0 FL Mean Corpuscular Hemoglobin 27.6 PG Mean Corpuscular Hemoglobin Concent 33.2 % Red Cell Distribution Width 11.8 % Platelet Count 246 TH/MM3 Mean Platelet Volume 8.5 FL Neutrophils (%) (Auto) 72.8 % Lymphocytes (%) (Auto) 20.1 % Monocytes (%) (Auto) 3.3 % Eosinophils (%) (Auto) 1.4 % Basophils (%) (Auto) 2.4 % Neutrophils # (Auto) 6.3 TH/MM3 Lymphocytes # (Auto) 1.8 TH/MM3 Monocytes # (Auto) 0.3 TH/MM3 Eosinophils # (Auto) 0.1 TH/MM3 Basophils # (Auto) 0.2 TH/MM3 CBC Comment DIFF FINAL Differential Comment Blood Urea Nitrogen 11 MG/DL Creatinine 0.98 MG/DL Random Glucose 193 MG/DL Total Protein 8.4 GM/DL Albumin 3.7 GM/DL Calcium Level 9.7 MG/DL Alkaline Phosphatase 115 U/L Aspartate Amino Transf (AST/SGOT) 23 U/L Alanine Aminotransferase (ALT/SGPT) 33 U/L Total Bilirubin 0.6 MG/DL Sodium Level 137 MEQ/L Potassium Level 3.9 MEQ/L Chloride Level 97 MEQ/L Carbon Dioxide Level 32.5 MEQ/L Anion Gap 8 MEQ/L Estimat Glomerular Filtration Rate 62 ML/MIN MDM Medical Decision Making Medical Screen Exam Complete: Yes Emergency Medical Condition: Yes Medical Record Reviewed: Yes Interpretation(s) Vital Signs Date Time Temp Pulse Resp B/P (MAP) Pulse Ox O2 Delivery O2 Flow Rate FiO2 01/17/18 11:40 97.3 94 16 117/55 (48) 98 Differential Diagnosis Bacterial vaginosis, cervicitis, UTI, yeast infection, appendicitis, ovarian cyst, ovarian torsion, gastritis, gastroenteritis Narrative Course Patient is a 42-year-old female who presents the emergency room with complaints of vaginal discharge as well as vaginal pruritus which is been ongoing for the past few months. Patient reports that she has had no relief of symptoms being after being treated with Diflucan. Patient reports that for the past 2 days, she has been having lower abdominal pain (suprapubic) which radiates to her upper abdomen. During the course of the patients emergency department visit, the patients history, examination, and differential diagnosis were reviewed with the patient. The patient was placed on a sand molder with oximetry and frequent blood pressure monitoring. The patient had an IV access obtained and blood work sent for analysis. A pelvic exam was performed with RN at bedside, patient with no obvious CMT or adnexal tenderness, she does have isacc white thick discharge, cultures were obtained. The patients laboratory studies were reviewed and remarkable for Laboratory Tests Test 01/17/18 11:40 01/17/18 12:40 01/17/18 13:00 Urine Collection Type CLEAN CATCH Urine Color YELLOW (YELLW/STRAW) Urine Turbidity SL CLOUDY (CLEAR) Urine pH 5.5 (5.0-8.5) Urine Specific [place] GREATER/EQUAL 1.030 Urine Protein 100 mg/dL (NEG-TRACE) Urine Glucose (UA) NEG mg/dL (NEG) Urine Ketones 15 mg/dL (NEG) Urine Occult Blood NEG (NEG) Urine Nitrite NEG (NEG) Urine Bilirubin NEG (NEG) Urine Urobilinogen 0.2 MG/DL (LESS THAN Urine Leukocyte Esterase TRACE (NEG) Urine RBC 0-3 /hpf (0-3) Urine WBC 9-14 /hpf (0-5) Urine Squamous Epithelial Cells > 8 /hpf (0-5) Urine Bacteria FEW /hpf (NONE) Microscopic Urinalysis Comment CULTURE INDICATED Urine Collection Time 11:40 Clue Cells (Wet Prep) NONE SEEN (NONE) Vaginal Trichomonas (Wet Prep) NONE SEEN (NONE) Vaginal Yeast (Wet Prep) NONE SEEN (NONE) White Blood Count 8.7 TH/MM3 (4.0-11.0) Red Blood Count 5.18 MIL/MM3 (4.00-5.30) Hemoglobin 14.3 GM/DL (11.6-15.3) Hematocrit 43.0 % (35.0-46.0) Mean Corpuscular Volume 83.0 FL (80.0-100.0) Mean Corpuscular Hemoglobin 27.6 PG (27.0-34.0) Mean Corpuscular Hemoglobin Concent 33.2 % (32.0-36.0) Red Cell Distribution Width 11.8 % (11.6-17.2) Platelet Count 246 TH/MM3 (150-450) Mean Platelet Volume 8.5 FL (7.0-11.0) Neutrophils (%) (Auto) 72.8 % (16.0-70.0) Lymphocytes (%) (Auto) 20.1 % (9.0-44.0) Monocytes (%) (Auto) 3.3 % (0.0-8.0) Eosinophils (%) (Auto) 1.4 % (0.0-4.0) Basophils (%) (Auto) 2.4 % (0.0-2.0) Neutrophils # (Auto) 6.3 TH/MM3 (1.8-7.7) Lymphocytes # (Auto) 1.8 TH/MM3 (1.0-4.8) Monocytes # (Auto) 0.3 TH/MM3 (0-0.9) Eosinophils # (Auto) 0.1 TH/MM3 (0-0.4) Basophils # (Auto) 0.2 TH/MM3 (0-0.2) CBC Comment DIFF FINAL Differential Comment Blood Urea Nitrogen 11 MG/DL (7-18) Creatinine 0.98 MG/DL (0.50-1.00) Random Glucose 193 MG/DL (74-106) Total Protein 8.4 GM/DL (6.4-8.2) Albumin 3.7 GM/DL (3.4-5.0) Calcium Level 9.7 MG/DL (8.5-10.1) Alkaline Phosphatase 115 U/L (45-117) Aspartate Amino Transf (AST/SGOT) 23 U/L (15-37) Alanine Aminotransferase (ALT/SGPT) 33 U/L (10-53) Total Bilirubin 0.6 MG/DL (0.2-1.0) Sodium Level 137 MEQ/L (136-145) Potassium Level 3.9 MEQ/L (3.5-5.1) Chloride Level 97 MEQ/L (98-107) Carbon Dioxide Level 32.5 MEQ/L (21.0-32.0) Anion Gap 8 MEQ/L (5-15) Estimat Glomerular Filtration Rate 62 ML/MIN (>89) Radiology studies were reviewed and remarkable for Last Impressions Abdomen/Pelvis CT 01/17/18 1235 Signed Impressions: Service Date/Time: Wednesday, January 17, 2018 14:01 - CONCLUSION: 1. No acute CT abnormality to explain patient's abdominal pain. 2. Normal-appearing appendix. 3. Redemonstration of bilateral enlarged ovaries demonstrate diffuse enhancement without significant inflammatory change. Probable small 1.7 her left ovarian cyst. 1. Mark Mosley MD Labs reviewed wbc 8.7, hgb 14.3, hct 43, platelets: 246 Sodium 137, chloride 97, BUN 11, creatinine 0.98, glucose 183 AST 23, ALT 33, alk phos 115 UA positive for 9-14 white blood cells, few bacteria, greater than 8 squamous cells clue cells negative, trichomonas negative, vaginal yeast negative GC pending. CT with no acute changes, there are noted to be bilateral large ovarian cysts without significant inflammatory changes. I reviewed all labs and all studies with patient in detail. She does have suprapubic tenderness, I do suspect that her abdominal pain is most likely due to UTI. Plan to treat patient's UTI with Macrobid. I will also give her a prescription for Diflucan as well as a clomizeral cream as she does appear to have vaginitis most likely due to Susan. Plan for her to follow-up with her business development officer. Patient is feeling much better at this time, patient with no abdominal pain, no nausea or vomiting. Signs and symptoms of when to return to the emergency room was reviewed patient in detail. Patient was given a copy of her studies at discharge for follow up on all incidental findings Diagnosis Primary Impression: UTI (urinary tract infection) Qualified Codes: N30.00 - Acute cystitis without hematuria Additional Impressions: Vaginitis Qualified Codes: N76.1 - Subacute and chronic vaginitis Ovarian cyst Patient Instructions: General Instructions Additional Instructions: Please provide patient with a copy of their lab work and studies at discharge* * Please follow up with your primary care doctor in 2-3 days Return to the ER if symptoms worsen or progress Return to the ER as needed Please follow-up with your business development officer as soon as possible Please follow-up with all cultures from today Med/Other Pt SpecificInfo: Prescription(s) given Scripts Fluconazole (Diflucan) 150 Mg Tab 150 MG PO ONCE for Infection, #2 TAB 0 Refills Prov: Genesis Arias DO 01/17/18 Clotrimazole Vaginal (Clotrimazole Vaginal) 1% Cream 1 APPL VAGINAL HS for Fungal Infection, #45 GM 0 Refills Prov: Genesis Arias DO 01/17/18 Nitrofurantoin Monohydrate Macrocrystals (Macrobid) 100 Mg Cap 100 MG PO BID for Infection for 10 Days, #20 CAP 0 Refills Prov: Genesis Arias DO 01/17/18 Disposition: 01 DISCHARGE HOME Condition: Stable Genesis Arias DO January 17, 2018 12:42
[2018-01-17] MEDS ORDERED: SODIUM CHLORIDE 0.9% FLUSH 10 ML FLUSH IVF PRN (12:45)
[2018-01-17 13:14] LABS: AUTOMATED NEUTROPHIL # 6.3 TH/MM3 (1.8-7.7); BASOPHIL # 0.2 TH/MM3 (0-0.2); BASOPHIL % 2.4 % (0.0-2.0); EOSINOPHIL # 0.1 TH/MM3 (0-0.4); EOSINOPHIL % 1.4 % (0.0-4.0); HEMOGLOBIN 14.3 GM/DL (11.6-15.3); LYMPH % 20.1 % (9.0-44.0); LYMPHOCYTE # 1.8 TH/MM3 (1.0-4.8); MEAN CORPUSCULAR HEMOGLOBIN 27.6 PG (27.0-34.0); MEAN CORPUSCULAR HGB CONC 33.2 % (32.0-36.0); MEAN PLATELET VOLUME 8.5 FL (7.0-11.0); MONO % 3.3 % (0.0-8.0); MONOCYTE # 0.3 TH/MM3 (0-0.9); NEUT % 72.8 % (16.0-70.0); PLATELET COUNT 246 TH/MM3 (150-450); RED BLOOD COUNT 5.18 MIL/MM3 (4.00-5.30); RED CELL DISTRIBUTION WIDTH 11.8 % (11.6-17.2); WHITE BLOOD COUNT 8.7 TH/MM3 (4.0-11.0)
[2018-01-17 13:24] LABS: CHLORIDE 97 MEQ/L (98-107); SODIUM (NA) 137 MEQ/L (136-145)
[2018-01-17 13:27] LABS: CALCIUM 9.7 MG/DL (8.5-10.1)
[2018-01-17 13:28] LABS: ALBUMIN 3.7 GM/DL (3.4-5.0); BICARBONATE 32.5 MEQ/L (21.0-32.0); BLOOD UREA NITROGEN 11 MG/DL (7-18); GLUCOSE,RANDOM 193 MG/DL (74-106)
[2018-01-17 13:31] LABS: ALT (GPT) 33 U/L (10-53); AST (GOT) 23 U/L (15-37); CREATININE 0.98 MG/DL (0.50-1.00); GLOMERULAR FILTRATION RATE 62 ML/MIN (>89)
[2018-01-17 13:32] LABS: TOTAL BILIRUBIN ADULT 0.6 MG/DL (0.2-1.0); TOTAL PROTEIN 8.4 GM/DL (6.4-8.2)
[2018-01-17 13:34] LABS: ALKALINE PHOSPHATASE 115 U/L (45-117)
[2018-01-17] MEDS ORDERED: NITROFURANTOIN MONOHYD MACROCR 100 MG CAP PO ONE (14:00)
[2018-01-17] MEDS ORDERED: IOHEXOL 350 MG/ML 10 ML VIAL (for RAD DIAG) IVCONTRAST ONE (14:08)
--- NOTE | 2018-01-17 14:30 | RADRPT ---
EXAM DATE/TIME: 01/17/2018 14:01 [facility] COMPARISON: CT PELVIS W CONTRAST, July 06, 2017, 11:57. INDICATIONS : Right sided abdominal pain. IV CONTRAST: 95 cc Omnipaque 350 (iohexol) IV ORAL CONTRAST: No oral contrast ingested. RADIATION DOSE: 10.24 CTDIvol (mGy) MEDICAL HISTORY : Hypercholesterolemia. Diabetes. SURGICAL HISTORY : None. ENCOUNTER: Initial ACUITY: 3 days PAIN SCALE: 9/10 LOCATION: Right abdomen TECHNIQUE: Volumetric scanning of the abdomen and pelvis was performed. Using automated exposure control and ad justment of the mA and/or kV according to patient size, radiation dose was kept as low as reasonably achievable to obtain optimal diagnostic quality images. DICOM format image data is available electro nically for review and comparison. FINDINGS: LOWER LUNGS: The visualized lower lungs are clear. LIVER: Homogeneous density without lesion. There is no dilation of the biliary tree. No calcified gallston es. SPLEEN: Normal size without lesion. PANCREAS: Within normal limits. KIDNEYS: Multiple bilateral hypodense cystic lesions which are to small to fully characterize. Kidneys otherwi se are symmetrical in size without radiopaque renal calculi or hydronephrosis. ADRENAL GLANDS: Within normal limits. VASCULAR: There is no aortic aneurysm. BOWEL/MESENTERY: The stomach, small bowel, and colon demonstrate no acute abnormality. Tubular structure in the right lower quadrant likely reflects a normal appendix. No other identifiable tubal structures or inflammat ory change. There is no free intraperitoneal air or fluid. ABDOMINAL WALL: Within normal limits. RETROPERITONEUM: There is no lymphadenopathy. BLADDER: No wall thickening or mass. REPRODUCTIVE: Redemonstration of bilateral enlarged and diffusely enhancing ovaries without significant surrounding inflammatory change. Probable small 1.8 cm left ovarian cyst. Uterus is within normal limits. INGUINAL: There is no lymphadenopathy or hernia. MUSCULOSKELETAL: Within normal limits for patient age. CONCLUSION: 1. No acute CT abnormality to explain patient's abdominal pain. 2. Normal-appearing appendix. 3. Redemonstration of bilateral enlarged ovaries demonstrate diffuse enhancement without significant inflammatory change. Probable small 1.7 her left ovarian cyst. 1. Mark Mosley MD on January 17, 2018 at 14:19 Board Certified Radiologist. This report was verified electronically.
[2018-01-17] MEDS ORDERED: CLOT1CRE4 VAGINAL (15:05)
[2018-01-17] MEDS ORDERED: MACR100C2 PO (15:05)
[2018-01-17] MEDS ORDERED: DIFL150T PO (15:05)
== END 2018-01-17 15:43 | disposition home or self-care (01) ==
LOC: PHEFT 11:32 → PHED 15:43
DX: N30.00 Acute cystitis without hematuria (principal); N76.1 Subacute and chronic vaginitis; N83.209 Unspecified ovarian cyst, unspecified side; E78.00 Pure hypercholesterolemia, unspecified; E11.9 Type 2 diabetes mellitus without complications
CPT/HCPCS: 74177; 80053; 81001; 84703; 85025; 87086; 87210; 87491; 87591; 99284; Q9967

== ENCOUNTER 2018-02-08 10:11 | Emergency (ER) | payer OTHER ==
[~2018-02-08 10:11] MED LIST changes: +CHOLESTEROL MED; +CLOT1CRE4 VAGINAL; +GLYB2.5T3 PO; +MACR100C2 PO; +METF1000 PO
[2018-02-08 10:19] VITALS: BP 116/73; PULSE 105; RESP 16; TEMP 98.1; O2SAT 97
--- NOTE | 2018-02-08 10:45 | PD ---
HPI Chief Complaint: Pain: Acute or Chronic Time Seen by Provider: 10:29 Travel History International Travel<30 days: No Contact w/Intl Traveler<30days: No Traveled to known affect area: No History of Present Illness HPI This 42-year-old female is complaining of pain in her left hip. She says the pain just started this morning. There is no history of injury. There is no numbness or tingling in the leg. She has no history of back trouble. She does have a history of diabetes. There HAs been no fever or chills. She does say she is also noticed nasal congestion and watery eyes PFSH Past Medical History High Cholesterol: Yes Diabetes: Yes Patient Takes Glucophage: Yes Diminished Hearing: No Immunizations Current: No ?: Not LMP: STATES HAS NEVER HAD A MENSTRAL CYCLE : 0 Para: 0 Miscarriage: 0 : 0 Past Surgical History Surgical History: No Previous Surgery Social History Alcohol Use: Yes (SOCIAL-wine) Tobacco Use: No Substance Use: No Allergies-Medications (Allergen,Severity, Reaction): Coded Allergies: No Known Allergies (Verified Adverse Reaction, Unknown, 01/17/18) Reported Meds & Prescriptions Reported Meds & Active Scripts Active Reported [Cholesterol Med] Glyburide 2.5 Mg Tab 2.5 Mg PO DAILY Take with meals at the same time each day Metformin (Metformin HCl) 1,000 Mg Tab 500 Mg PO BIDPC Review of Systems General / Constitutional: No: Fever, Chills Eyes: No: Diploplia, Blurred Vision HENT: Positive: Rhinitis, No: Headaches, Vertigo Cardiovascular: No: Chest Pain or Discomfort, Palpitations Respiratory: No: Cough, Shortness of Breath Gastrointestinal: No: Nausea, Vomiting Genitourinary: No: Urgency, Frequency Musculoskeletal: No: Myalgias, Arthralgias Skin: No Rash, No Itching Neurologic: No: Weakness, Dizziness Psychiatric: No: Anxiety Endocrine: No: Heat Intolerance, Cold Intolerance Hematologic/Lymphatic: No: Easy Bruising Physical Exam Narrative GENERAL: Well-developed female SKIN: Focused skin assessment warm/dry. HEAD: Atraumatic. Normocephalic. EYES: Pupils equal and round. No scleral icterus. No injection or drainage. ENT: No nasal bleeding or discharge. Mucous membranes pink and moist. NECK: Trachea midline. No JVD. CARDIOVASCULAR: Regular rate and rhythm. No murmur appreciated. RESPIRATORY: No accessory muscle use. Clear to auscultation. Breath sounds equal bilaterally. GASTROINTESTINAL: Abdomen soft, non-tender, nondistended. Hepatic and splenic margins not palpable. MUSCULOSKELETAL: No obvious deformities. No clubbing. No cyanosis. No edema. There is no midline tenderness of the back. I am able to lift both legs to 45 without eliciting pain. Sensation is intact. There is some pain at the lateral aspect of the left trochanter NEUROLOGICAL: Awake and alert. No obvious cranial nerve deficits. Motor grossly within normal limits. Normal speech. PSYCHIATRIC: Appropriate mood and affect; insight and judgment normal. Data Data Last Documented VS Vital Signs Date Time Temp Pulse Resp B/P (MAP) Pulse Ox O2 Delivery O2 Flow Rate FiO2 02/08/18 10:19 98.1 105 16 116/73 (87) 97 Orders Orders Hip, Uni(Ap&Lat) W Ap Pelvis (02/08/18 10:36) MDM Medical Decision Making Medical Screen Exam Complete: Yes Emergency Medical Condition: Yes Medical Record Reviewed: Yes Differential Diagnosis Differential includes radiculopathy, arthritis, trochanteric bursitis, fracture Narrative Course X-ray of the hip was obtained and does show some arthritis. Diagnosis Primary Impression: Trochanteric bursitis Scripts Meloxicam (Meloxicam) 7.5 Mg Tab 7.5 MG PO DAILY for Arthritis Pain for 14 Days, #14 TAB 0 Refills Prov: Flex Jansen MD 02/08/18 Disposition: 01 DISCHARGE HOME Condition: Stable Flex Jansen MD Feb 08, 2018 10:45
--- NOTE | 2018-02-08 11:45 | RADRPT ---
EXAM DATE: 02/08/2018 11:33 AM EDT AGE/SEX: 42 years / Female INDICATIONS: Left hip pain, no trauma CLINICAL DATA: This is the patient's initial encounter. Patient reports that signs and symptoms have been present for 1 day and indicates a pain score of 7/10. MEDICAL/SURGICAL HISTORY: None. None. COMPARISON: No prior exams available for comparison. FINDINGS: Bony structures are intact and in normal alignment. Joints are intact without dislocation or signifi cant arthropathy. Osseous density is normal. Mild degenerative changes are noted, no fracture Soft t issues are unremarkable. No radiopaque foreign bodies seen. CONCLUSION: Mild degenerative changes no fracture Electronically signed by: Kong Gregory MD 02/08/2018 11:44 AM EDT
[2018-02-08] MEDS ORDERED: MELO7.5T27 PO (12:02)
[2018-02-08 12:06] VITALS: BP 111/63; PULSE 80; RESP 18; O2SAT 99
== END 2018-02-08 12:13 | disposition home or self-care (01) ==
LOC: PHED 10:11
DX: M70.62 Trochanteric bursitis, left hip (principal); E78.00 Pure hypercholesterolemia, unspecified; E11.9 Type 2 diabetes mellitus without complications; Z79.899 Other long term (current) drug therapy
CPT/HCPCS: 73502; 99283